=== PATIENT | female | born 1925 | race Caucasian/White ===

== ENCOUNTER 2016-07-20 13:24 | Inpatient (IN) | payer MEDICARE ==
[~2016-07-20] VITALS: Ht 152.4 cm; Wt 40.3 kg
[~2016-07-20 13:24] MED LIST: ASCO250T3 PO; BENZ100C4 PO; FURO-92 PO; GABA300C10 PO; LISI-170 PO; METO25TA35 PO; OMEP20CA9 PO; POTA20PA PO; WARF4TAB7 PO; WARF5TAB7 PO
[2016-07-20] MEDS ORDERED: MORPHINE SULFATE 4 MG/ML, 1ML ONE (13:54)
[2016-07-20] MEDS ORDERED: ONDANSETRON 2MG/ML, 2ML ONE (13:54)
[2016-07-20] MEDS ORDERED: DIPH,PERTUSS(ACELL),TET VAC/PF 0.5 ML IM-VACC ONE ×2 (13:55→14:00)
[2016-07-20] MEDS ORDERED: ONDANSETRON 2MG/ML, 2ML IVPush ONE (14:00)
[2016-07-20] MEDS ORDERED: SODIUM CHLORIDE FLUSH 10ML SYR IVF ONE (14:00)
[2016-07-20] MEDS ORDERED: MORPHINE SULFATE 4 MG/ML, 1ML IVPush PRN (14:00)
[2016-07-20] MEDS ORDERED: SODIUM CHLORIDE 0.9% 1,000ML IVBOLUS ONE (14:00)
[2016-07-20 14:21] LABS: BLOOD UREA NITROGEN 17 mg/dL (7-18)
[2016-07-20] MEDS ORDERED: ACETAMINOPHEN 325 MG TABLET PO PRN (16:30)
[2016-07-20] MEDS ORDERED: ONDANSETRON 2MG/ML, 2ML IVPush PRN (16:30)
[2016-07-20] MEDS ORDERED: OXYcodone IR 5MG TABLET PO PRN (16:30)
[2016-07-20 17:31] VITALS: BP 112/72
[2016-07-20 19:26] VITALS: BP 123/65
[2016-07-20] MEDS: SODIUM CHLORIDE FLUSH 3ML SYRINGE IVF SCH (21:00)
[2016-07-20] MEDS: GABAPENTIN 300 MG CAPSULE PO SCH (21:22)
[2016-07-20] MEDS: METOPROLOL TARTRATE 25 MG TABLET PO SCH (21:23)
[2016-07-21 01:22] VITALS: BP 117/68
[2016-07-21] MEDS: morphine SULFATE 10 MG/ML, 1ML IVPush PRN ×3 (01:35→22:47)
[2016-07-21 04:48] LABS: ABG COLLECTION SITE RIGHT BRACHIAL
[2016-07-21 05:06] LABS: BLOOD UREA NITROGEN 19 mg/dL (7-18)
[2016-07-21] MEDS ORDERED: OMNIPAQUE 350 MG/ML, 100ML BOTTLE ONE (05:29)
[2016-07-21 05:49] VITALS: BP 128/78
[2016-07-21] MEDS ORDERED: FUROSEMIDE 20 MG/2 ML IV ONE (06:30)
[2016-07-21] MEDS: GABAPENTIN 300 MG CAPSULE PO SCH ×3 (09:00→21:00)
[2016-07-21] MEDS ORDERED: OMEPRAZOLE 20 MG CAPSULE.DR PO SCH (09:00)
[2016-07-21] MEDS ORDERED: POTASSIUM CHLORIDE 10 MEQ TABLET.ER PO SCH (09:00)
[2016-07-21] MEDS ORDERED: DOCUSATE 100 MG CAPSULE PO SCH (09:00)
[2016-07-21] MEDS ORDERED: ASCORBIC ACID 500 MG TABLET PO SCH (09:00)
[2016-07-21] MEDS ORDERED: LISINOPRIL 20 MG TABLET PO SCH (09:00)
[2016-07-21] MEDS: SODIUM CHLORIDE FLUSH 3ML SYRINGE IVF SCH ×2 (09:00→21:00)
[2016-07-21] MEDS: METOPROLOL TARTRATE 25 MG TABLET PO SCH ×2 (09:00→21:00)
[2016-07-21] MEDS ORDERED: FUROSEMIDE 40 MG TABLET PO SCH (09:00)
[2016-07-21 09:38] VITALS: BP 77/49
[2016-07-21 13:37] VITALS: BP 94/56
[2016-07-21] MEDS ORDERED: METOPROLOL 1 MG/ML, 5ML IVPush PRN (17:00)
[2016-07-21] MEDS: D5%-0.45% NACL 1,000 ML IV SCH (17:43)
[2016-07-21] MEDS: FUROSEMIDE 20 MG/2 ML IV SCH (17:43)
[2016-07-21] MEDS ORDERED: WARFARIN 3 MG TABLET PO-COUM ONE (18:00)
[2016-07-21 19:36] VITALS: BP 105/72
[2016-07-21] MEDS: FAMOTIDINE 20 MG/2 ML IVPush SCH (21:00)
[2016-07-21 22:40] VITALS: BP 104/69
[2016-07-22 01:54] VITALS: BP 93/59
[2016-07-22 05:44] LABS: BLOOD UREA NITROGEN 20 mg/dL (7-18)
[2016-07-22 06:50] VITALS: BP 104/70
[2016-07-22] MEDS: METOPROLOL TARTRATE 25 MG TABLET PO SCH ×2 (08:18→20:07)
[2016-07-22] MEDS: FAMOTIDINE 20 MG/2 ML IVPush SCH ×2 (08:18→20:16)
[2016-07-22] MEDS: morphine SULFATE 10 MG/ML, 1ML IVPush PRN ×4 (08:18→23:00)
[2016-07-22] MEDS: FUROSEMIDE 20 MG/2 ML IV SCH ×2 (08:18→20:09)
[2016-07-22] MEDS: GABAPENTIN 300 MG CAPSULE PO SCH ×3 (08:18→20:07)
[2016-07-22] MEDS: SODIUM CHLORIDE FLUSH 3ML SYRINGE IVF SCH ×2 (08:18→21:00)
[2016-07-22 13:23] VITALS: BP 112/70
[2016-07-22] MEDS: D5%-0.45% NACL 1,000 ML IV SCH (13:55)
[2016-07-22] MEDS: WARFARIN 2 MG TABLET PO-COUM ONE ×2 (15:41→18:16)
[2016-07-22 18:48] VITALS: BP 99/64
[2016-07-22 22:55] VITALS: BP 127/77
[2016-07-23 02:42] VITALS: BP 119/67
[2016-07-23 07:30] VITALS: BP 89/52
[2016-07-23] MEDS: FUROSEMIDE 20 MG/2 ML IV SCH (07:30)
[2016-07-23] MEDS: GABAPENTIN 300 MG CAPSULE PO SCH ×2 (09:00→16:00)
[2016-07-23] MEDS: D5%-0.45% NACL 1,000 ML IV SCH (09:00)
[2016-07-23] MEDS: FAMOTIDINE 20 MG/2 ML IVPush SCH (09:00)
[2016-07-23] MEDS: SODIUM CHLORIDE FLUSH 3ML SYRINGE IVF SCH (09:00)
[2016-07-23] MEDS: METOPROLOL TARTRATE 25 MG TABLET PO SCH (09:00)
[2016-07-23] MEDS ORDERED: HYDROcodone/APAP 7.5-325MG/15ML UDC PO PRN (10:00)
[2016-07-23] MEDS ORDERED: HYDROcodone/APAP 7.5-325MG/15ML UDC PO ONE (10:00)
[2016-07-23] MEDS ORDERED: morphine SULFATE ORAL.CONC 20 MG/ML BC ONE ×2 (11:15→12:00)
[2016-07-23] MEDS ORDERED: morphine SULFATE ORAL.CONC 20 MG/ML PO PRN ×2 (13:30→14:00)
[2016-07-23 14:01] VITALS: BP 103/65
[2016-07-23] MEDS ORDERED: WARFARIN 2 MG TABLET PO-COUM ONE (18:00)
== END 2016-07-23 17:25 | DRG 562 ==
LOC: ED 14:44 → EDIP 14:46 → ED 15:01 → 3NE 16:49 → 5SO 07-21 05:43
PROVIDERS: ADMIT Hospitalist; ATTEND Hospitalist
PROC: 2W3RXYZ Immobilization of Left Lower Leg using Other Device (ICD-10-PCS; principal; 2016-07-20)
DX: S82.152A Displaced fracture of left tibial tuberosity, initial encounter for closed fracture (principal); E43 Unspecified severe protein-calorie malnutrition; J98.11 Atelectasis; I10 Essential (primary) hypertension; I48.91 Unspecified atrial fibrillation; F03.90 Unspecified dementia, unspecified severity, without behavioral disturbance, psychotic disturbance, mood disturbance, and anxiety; K21.9 Gastro-esophageal reflux disease without esophagitis; R62.7 Adult failure to thrive; S00.81XA Abrasion of other part of head, initial encounter; R13.10 Dysphagia, unspecified; Z66 Do not resuscitate; W01.0XXA Fall on same level from slipping, tripping and stumbling without subsequent striking against object, initial encounter; Z51.5 Encounter for palliative care; Z79.01 Long term (current) use of anticoagulants; Z86.711 Personal history of pulmonary embolism; I25.2 Old myocardial infarction; Z87.891 Personal history of nicotine dependence; Y93.89 Activity, other specified; Y92.89 Other specified places as the place of occurrence of the external cause; Z79.899 Other long term (current) drug therapy
CPT/HCPCS: 36415; 36600; 70450; 71010; 71275; 74230; 80048; 82040; 82803; 85025; 85610; 90471; 90715; 96374; 96375; J2405; Q9967; J1940; J2270; J7030; S0028